=== PATIENT | female | born 1970 | race Caucasian/White ===

== ENCOUNTER 2020-04-13 12:06 | Emergency (ER) | payer BC, OTHER ==
[2020-04-13] MEDS ORDERED: BUPIVACAINE 0.5% PF 10 ML VIAL ONE (13:33)
[2020-04-13] MEDS ORDERED: TETANUS & DIPHTHERIA TOX,ADULT 0.5 ML VIAL ONE (13:33)
[2020-04-13] MEDS ORDERED: LIDOCAINE 1% 20 ML MDV ONE (13:33)
--- NOTE | 2020-04-13 14:01 | ER ---
Nurse's Notes [facility] Name: Akilah Temple Age: 49 yrs Sex: Female : 1970 Arrival Date: 04/13/2020 Time: 12:08 Bed 13 Private MD: Diagnosis: Laceration without foreign body of left index finger without damage to nail Presentation: 04/13 12:17 Chief complaint: Patient states: left index finger laceration last night with knife. sv c/o left finger numbness. Coronavirus screen: Client denies travel out of the [place] in the last 14 days. At this time, the client does not indicate any symptoms associated with coronavirus-19. Ebola Screen: No symptoms or risks identified at this time. Complicating Factors: There are no complicating factors for this patient. Risk Assessment: Do you want to hurt yourself or someone else? Patient reports no desire to harm self or others. Onset of symptoms was April 12, 2020. 12:17 Method Of Arrival: Ambulatory sv 12:17 Acuity: MARYAM 2 sv 12:18 Initial Sepsis Screen: Does the patient meet any 2 criteria? No. Patient's initial sv sepsis screen is negative. Does the patient have a suspected source of infection? No. Patient's initial sepsis screen is negative. Triage Assessment: 12:17 General: Appears in no apparent distress. uncomfortable, Behavior is calm, cooperative, sv appropriate for age. Pain: Complains of pain in left hand. Neuro: Level of Consciousness is awake, alert, obeys commands, Gait is steady. Respiratory: Respiratory effort is even, unlabored. Injury Description: Laceration sustained to palmar aspect of proximal phalanx of left index finger. 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 - Social history:: Smoking status: Patient denies any tobacco usage or history of. Screenin:22 Abuse screen: Denies threats or abuse. Nutritional screening: No deficits noted. ll1 Tuberculosis screening: No symptoms or risk factors identified. Fall Risk None identified. Total Forrest Fall Scale indicates No Risk (0-24 pts). Assessment: 13:22 General: Appears in no apparent distress. Behavior is calm, cooperative, appropriate ll1 for age. Pain: Complains of pain in palmar aspect of proximal phalanx of left index finger. Derm: Wound noted palmar aspect of proximal phalanx of left index finger Wound is laceration, bleeding controlled. See JESÚS Ochoa note fir further details. Musculoskeletal: Circulation, motion, and sensation intact. Capillary refill < 3 seconds, Range of motion: intact in all extremities, Reports pain in palmar aspect of proximal phalanx of left index finger. Injury Description: Laceration. 14:20 Reassessment: No changes from previously documented assessment. Patient and/or family ll1 updated on plan of care and expected duration. Pain level reassessed. 14:39 Injury Description: Laceration. ll1 14:40 Injury Description: Laceration is clean, 0.5 to 2.5 cm long. ll1 Vital Signs: 12:18 BP 156 / 99; Pulse 83; Resp 18; Temp 97.5; Pulse Ox 100% ; sv ED Course: 12:08 Patient arrived in ED. rg4 12:18 Triage completed. sv 12:18 Arm band placed on. sv 12:58 Veronica Coombs, SHANNAN is Primary Nurse. ll1 13:10 Jose Martin Fuentes PA is PHCP. cp 13:10 Lang Yanez MD is Attending Physician. cp 13:22 Patient has correct armband on for positive identification. Bed in low position. Call ll1 light in reach. Side rails up X 1. Cardiac monitoring not applicable on this patient. 14:38 Dressings: Kerlix X 1; palmar aspect of proximal phalanx of left index finger ll1 non-adherent dressing x 1 palmar aspect of proximal phalanx of left index finger 4X4s X 1; palmar aspect of proximal phalanx of left index finger straight aluminum splint to left hand 2nd digit. 14:39 Assist provider with laceration repair. Patient did not have IV access during this 1 emergency room visit. Administered Medications: 13:21 Not Given (UTD, less than 3 years ago): Tetanus-Diphtheria Toxoid Adult 0.5 ml IM once ll1 13:30 Drug: Lidocaine (1 %) 10 ml {Note: by JESÚS Ochoa.} Volume: 20 ml; Route: Infiltration; ll1 14:41 Follow up: Response: No adverse reaction; RASS: Alert and Calm (0) 1 13:30 Drug: Marcaine (0.5 %) 10 ml {Note: by Cruzito Fuentes during suture repair.} Volume: 10 ml; ll1 Route: Infiltration; 14:41 Follow up: Response: No adverse reaction; RASS: Alert and Calm (0) ll1 Outcome: 14:00 Discharge ordered by MD. long 14:37 Patient left the ED. ll1 14:40 Discharged to home ambulatory. ll1 14:40 Condition: stable 14:40 Discharge instructions given to patient, Instructed on discharge instructions, follow up and referral plans. medication usage, wound care, Demonstrated understanding of instructions, follow-up care, medications, wound care, Prescriptions given X 2. Signatures: Maureen Garza RN RN Jose Martin Fuentes PA PA cp Garcia, Rubi rg4 Veronica Coombs RN RN 1 Corrections: (The following items were deleted from the chart) 12:20 12:17 Chief complaint: Patient states: left index finger laceration last night with sv knife. sv 12:21 12:17 Acuity: MARYAM 3 sv sv 12:21 12:18 Pulse 83bpm; Resp 18bpm; Pulse Ox 100%; Temp 97.5F; sv sv
--- NOTE | 2020-04-13 14:01 | EDPHYS ---
Physician Documentation [facility] Name: Akilah Temple Age: 49 yrs Sex: Female : 1970 Arrival Date: 04/13/2020 Time: 12:08 Bed 13 Private MD: ED Physician Lang Yanez HPI: 04/13 13:15 This 49 yrs old Female presents to ER via Ambulatory with complaints of cp Laceration To Hand. 13:15 The patient has a laceration occurred at home. cp 13:15 The laceration(s) is(are) located on the palmar aspect of proximal phalanx of left cp index finger. Onset: The symptoms/episode began/occurred this morning. Associated signs and symptoms: Pertinent negatives: heavy bleeding, numbness distal to injury, suspected foreign body. 13:15 Patient reports she was cutting an apple when she accidently injured left hand. 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 - Social history:: Smoking status: Patient denies any tobacco usage or history of. ROS: 13:20 Skin: Positive for laceration(s), of the palmar aspect of proximal phalanx of left cp index finger. 13:20 Constitutional: Negative for fever. cp 13:20 Neuro: Negative for numbness, weakness. 13:20 All other systems are negative. cp Exam: 13:25 Skin: injury, laceration(s), the wound is approximately 3 cm(s), of the palmar aspect cp of proximal phalanx of left index finger, that can be described as clean, no foreign body, linear, with mild bleeding. 13:25 Musculoskeletal/extremity: Tendon exam: specific tendon testing normal through active cp and passive range of motion 13:25 Neuro: Sensation: 2 point discrimination is normal. 13:25 Constitutional: The patient appears in no acute distress, alert, awake, non-toxic, well cp developed, well nourished. 13:25 Chest/axilla: Inspection: normal. cp 13:25 Cardiovascular: Rate: normal. 13:25 Respiratory: the patient does not display signs of respiratory distress, Respirations: normal, no use of accessory muscles. Vital Signs: 12:18 BP 156 / 99; Pulse 83; Resp 18; Temp 97.5; Pulse Ox 100% ; sv Laceration: 13:57 Wound Repair of 3cm ( 1.2in ) subcutaneous laceration to palmar aspect of proximal cp phalanx of left index finger. Linear shaped.. Distal neuro/vascular/tendon intact. Anesthesia: Wound infiltrated with 4 mls of Lido/Marcaine. Wound prep: Moderate cleansing by me, Wound irrigation by me. Skin closed with 4 4-0 Prolene using interrupted sutures and sterile technique. Dressed with Bacitracin, 4x4's. Patient tolerated well. MDM: 13:12 Patient medically screened. cp 14:00 Data reviewed: vital signs, nurses notes, and as a result, I will discharge patient. cp 14:00 Differential diagnosis: superficial laceration, tendon injury. Counseling: I had a cp detailed discussion with the patient and/or guardian regarding: the historical points, exam findings, and any diagnostic results supporting the discharge/admit diagnosis, the need for outpatient follow up, a family practitioner, to return to the emergency department if symptoms worsen or persist or if there are any questions or concerns that arise at home. Response to treatment: the patient's symptoms have markedly improved after treatment, and as a result, I will discharge patient. 04/13 13:13 Order name: Dressing - Wound; Complete Time: 14:23 cp 04/13 13:13 Order name: Gloves, Sterile; Complete Time: 13:21 cp 04/13 13:13 Order name: Setup Suture Tray; Complete Time: 13:21 cp 04/13 13:59 Order name: Wound dressing; Complete Time: 14:23 cp 04/13 13:59 Order name: Finger Splint; Complete Time: 14:23 cp Administered Medications: 13:21 Not Given (UTD, less than 3 years ago): Tetanus-Diphtheria Toxoid Adult 0.5 ml IM once ll1 13:30 Drug: Lidocaine (1 %) 10 ml {Note: by JESÚS Ochoa.} Volume: 20 ml; Route: Infiltration; ll1 14:41 Follow up: Response: No adverse reaction; RASS: Alert and Calm (0) ll1 13:30 Drug: Marcaine (0.5 %) 10 ml {Note: by Cruzito Fuentes during suture repair.} Volume: 10 ml; ll1 Route: Infiltration; 14:41 Follow up: Response: No adverse reaction; RASS: Alert and Calm (0) ll1 Disposition: 14:15 Chart complete. cp 04/14 08:00 Co-signature as Attending Physician, Lang Yanez MD I agree with the assessment and kdr plan of care. Disposition: 04/13/20 14:00 Discharged to Home. Impression: Laceration without foreign body of left index finger without damage to nail. - Condition is Stable. - Discharge Instructions: Laceration Care, Adult. - Prescriptions for Keflex 500 mg Oral Capsule - take 1 capsule by ORAL route every 8 hours for 10 days; 30 capsule. Naprosyn 500 mg Oral Tablet - take 1 tablet by ORAL route 2 times per day take with food; 20 tablet. - Medication Reconciliation Form, Thank You Letter, Antibiotic Education, Prescription Opioid Use form. - Follow up: Private Physician; When: 10 - 14 days; Reason: Staple/Suture removal. - Problem is new. - Symptoms have improved. Signatures: Maureen Garza, RN RN Lang Yanez MD MD [facility] Jose Martin Fuentes PA PA cp Veronica Coombs RN RN ll1 Corrections: (The following items were deleted from the chart) 04/13 14:37 14:00 04/13/2020 14:00 Discharged to Home. Impression: Laceration without foreign body ll1 of left index finger without damage to nail. Condition is Stable. Forms are Medication Reconciliation Form, Thank You Letter, Antibiotic Education, Prescription Opioid Use. Follow up: Private Physician; When: 10 - 14 days; Reason: Staple/Suture removal. Problem is new. Symptoms have improved. cp 04/14 10:33 04/13 13:20 All other systems are negative, cp cp
[2020-04-13 18:20] VITALS: BP 156/99; TEMP 97.5; O2SAT 100
== END 2020-04-13 14:37 | disposition home or self-care (01) ==
LOC: ER 12:06
PROC: 0JQK0ZZ Repair Left Hand Subcutaneous Tissue and Fascia, Open Approach (ICD-10-PCS; principal; 2020-04-13)
DX: S61.211A Laceration without foreign body of left index finger without damage to nail, initial encounter (principal); W26.0XXA Contact with knife, initial encounter; Y93.89 Activity, other specified; Y92.009 Unspecified place in unspecified non-institutional (private) residence as the place of occurrence of the external cause
CPT/HCPCS: 90714; 99283